=== PATIENT | male | born 1975 | race Caucasian/White ===

== ENCOUNTER → 2019-10-26 09:54 | Outpatient (CLI) | payer OTHER, SELFPAY ==
--- NOTE | ~2019-10-26 | MR_ITS ---
EXAMINATION: MR knee RT wo con DATE: 10/26/2019 10:50 INDICATION: Right knee popping and clicking and pain. TECHNIQUE: Magnetic resonance imaging (MRI) of the right knee was performed without intravenous contr ast. Sequences included axial PD-weighted FS FSE, coronal PD-weighted FSE and PD-weighted FS FSE, sag ittal PD-weighted FSE, coronal STIR FSE, and sagittal T2-weighted FS FSE. COMPARISON: None. FINDINGS: Medial compartment: There is a complex tear of medial meniscus involving the body and posterior horn. There is shallow pa rtial-thickness [employer] loss of tibial condyle. There is deep partial thickness cartilage loss of fem oral condyle involving the central and posterior articular surface. Bulky osteophytes are noted. Lateral compartment: There is a complex tear of anterior horn of lateral meniscus. There is full-thickness cartilage loss of tibial condyle medially with mild subchondral edema-like marrow signal intensity and small subchon dral cyst. There is deep partial thickness cartilage loss of tibial condyle laterally. There is full- thickness cartilage loss of femoral condyle involving the central and posterior articular surface. Th ere is depression of cortex of lateral femoral condyle at the notch with mild subchondral edema. Bulk y osteophytes are noted. Patellofemoral compartment: There is deep partial thickness cartilage loss of patellar lateral facet and median ridge with mild s ubchondral edema-like marrow signal intensity. There is cartilage surface irregularity of patellar me dial facet. There is deep partial thickness cartilage loss of lateral and central trochlea and shallo w partial-thickness cartilage loss of medial trochlea with mild subchondral edema-like marrow signal intensity. Posterior osteophytes are noted. Ligaments and tendons: There is an intact anterior cruciate ligament reconstruction with interference screws in the distal f emur and proximal tibia. There is thickening of posterior cruciate ligament, consistent with sprain. Medial collateral ligament is normal. There are changes of prior sprain of fibular collateral ligamen t characterized by thickening and increased signal intensity proximally. There is a graft donor site involving the middle third of the patellar tendon. Fluid: There is a small knee joint effusion. There is a small Calvillo's cyst. IMPRESSION: 1. Severe chondrosis of lateral compartment and moderate chondrosis of medial and patellofemoral comp artments. 2. Cortical depression at the notch of lateral femoral condyle, likely a fracture deformity from the time of the original anterior cruciate ligament tear. 3. Intact anterior cruciate ligament reconstruction. 4. Tears of medial and lateral menisci. Reviewed, dictated and finalized at location A. IMPRESSION: 1. Severe chondrosis of lateral compartment and moderate chondrosis of medial a nd patellofemoral compartments. 2. Cortical depression at the notch of lateral femoral condyle, likely a fractu re deformity from the time of the original anterior cruciate ligament tear. 3. Intact anterior cruciate ligament reconstruction. 4. Tears of medial and lateral menisci.
== END ==
PROVIDERS: Visit Provider Orthopaedic Surgery
DX: G89.29 Other chronic pain (principal); S83.241A Other tear of medial meniscus, current injury, right knee, initial encounter; S83.281A Other tear of lateral meniscus, current injury, right knee, initial encounter; X58.XXXA Exposure to other specified factors, initial encounter
CPT/HCPCS: 73721

== ENCOUNTER → 2020-10-03 17:01 | Outpatient (CLI) | payer OTHER, SELFPAY ==
--- NOTE | ~2020-10-03 | MR_ITS ---
EXAMINATION: MR knee LT wo con DATE: 10/03/2020 19:55 INDICATION: Left knee pain TECHNIQUE: Magnetic resonance imaging (MRI) of the left knee was performed without intravenous contra st. Sequences included coronal PD-weighted FSE, coronal PD-weighted FS FSE, sagittal T2-weighted FSE , sagittal PD-weighted FS FSE and axial PD weighted fat saturated FSE. COMPARISON: None. FINDINGS: Medial compartment: Medial meniscus is normal. Diffuse chondral ulceration with partial thickness cartilage loss and marita dral surface irregularity at the anterior to central weightbearing medial femoral condyle without deg enerative subchondral changes. Cartilage at the medial tibial plateau appears normal. Lateral compartment: Lateral meniscus is normal. Chondral ulceration and deep fissuring at the anterior to central weightb earing medial femoral condyle. Mild cortical irregularity with negligible subarticular edema at the a nteriormost weightbearing lateral femoral condyle. Additional chondral fissuring along the posterior margin of the lateral tibial plateau. Patellofemoral compartment: Deep chondral ulceration with mild subarticular edema at the cephalad half of the patellar apical rid ge and lateral facet. Deep chondral fissuring with underlying cortical irregularity and minimal subar ticular edema centered along the trochlear groove and immediately adjacent medial and lateral trochle a. Ligaments and tendons: Postoperative change of prior anterior cruciate ligament reconstruction with patellar tendon autograf t. The graft appears intact with normal low signal intensity in following a normal course relative to Blumensaat line. Diffuse thickening of the patellar tendon along either side of a central cleft like ly representing the harvest site for the cruciate ligament graft. The posterior cruciate ligament is normal. The medial collateral ligament and fibular collateral ligament complex are normal. Mild dista l quadriceps tendinopathy. The visualized medial and lateral hamstring tendons as well as the iliotib ial band are normal. Fluid: Physiologic amount of fluid in the joint space. No loose osteochondral bodies identified. Large Calvillo 's cyst measuring 8.0 cm in length and up to 3.8 x 1.4 cm in orthogonal dimensions. Osseous/other: Normal marrow signal. No fracture or pathologic marrow replacing process. Diffuse mild synovitis at H offa's fat pad. IMPRESSION: 1. Intact patellar tendon autograft anterior cruciate ligament reconstruction. 2. 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 3. Large Calvillo's cyst. Reviewed, dictated and finalized at location A. IMPRESSION: 1. Intact patellar tendon autograft anterior cruciate ligament reconstruction. 2. 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 3. Large Calvillo's cyst.
== END ==
PROVIDERS: Visit Provider Orthopaedic Surgery
DX: M25.562 Pain in left knee (principal); M17.12 Unilateral primary osteoarthritis, left knee; M94.262 Chondromalacia, left knee; M71.22 Synovial cyst of popliteal space [Baker], left knee
CPT/HCPCS: 73721

== ENCOUNTER → 2023-03-02 12:52 | Outpatient (CLI) | payer OTHER, SELFPAY ==
--- NOTE | ~2023-03-02 | MR_ITS ---
EXAMINATION: MR shoulder RT w con DATE: 03/02/2023 14:40 INDICATION: Right shoulder pain. TECHNIQUE: Magnetic resonance imaging (MRI) of the right shoulder was performed without intravenous c ontrast after intra-articular injection of contrast (MR arthrogram). COMPARISON: None. FINDINGS: Coracoacromial arch: The acromion undersurface is curved in morphology (type II). There is an old healed fracture of dista l clavicle. There is mild acromioclavicular joint osteoarthritis. Rotator cuff: There is severe supraspinatus and infraspinatus tendinopathy. There is a full-thickness tear of supra spinatus tendon measuring 8 mm anterior to posterior by 9 mm proximal to distal. There is an articula r sided partial-thickness tear of infraspinatus tendon with contrast tracking greater than 5 cm proxi xiao with contrast at the myotendinous junction. Teres minor tendon is normal. There is moderate sub scapularis tendinopathy. There is no asymmetric fatty atrophy of the rotator cuff muscle bellies. Biceps tendon and glenoid labrum: Biceps tendon is in bicipital groove. Intra-articular biceps tendon is normal. There is a tear of the labrum from 10:00 to 12:00 (SLAP tear). Fluid: The glenohumeral joint is well distended by contrast. There is iatrogenic placement of contrast in carter bscapularis muscle. Bones/cartilage: Humeral head cartilage is normal. Glenoid cartilage is normal. IMPRESSION: 1. Full-thickness rotator cuff tear. 2. SLAP tear. 3. Mild acromioclavicular joint osteoarthritis. Reviewed, dictated and finalized at location A. [employer]OR [employer]UCLE[employer]ICINE
--- NOTE | ~2023-03-02 | XR_ITS ---
EXAMINATION: XR fl inj shoulder RT - MR/CT DATE: 03/02/2023 13:51 INDICATION: Right shoulder pain. No prior surgery or dislocation. TECHNIQUE: A time-out was performed to verify the patient's name, date of , and procedure to b e performed. The procedure including the risks, benefits, and alternatives was discussed with the pat ient. Risks discussed included bleeding and infection. The patient understood the risks and agreed to proceed. The skin overlying the right glenohumeral joint was prepped and draped in usual sterile fas hion. Anesthetic was administered with 1% lidocaine subcutaneously. A 22 G needle was advanced unde r fluoroscopic guidance into the joint. Subsequently, injectate consisting of 12 mL of 1:200 Multiha nce, 1:4 1% lidocaine, and 1:4 Omnipaque 240 was instilled. The needle was removed and the entry sit e was cleaned and dressed. There were no immediate complications. Fluoroscopy exposure time was 0.0 minutes. The total number of images was 2. FINDINGS: Real-time fluoroscopy demonstrates the needle and contrast in the joint. IMPRESSION: 1. Successful right glenohumeral joint injection of contrast for subsequent MR arthrography. Reviewed, dictated and finalized at location A. LEADER/CONTROL ROOM OPERATOR
== END ==
PROVIDERS: PCP Orthopaedic Surgery; Visit Provider Orthopaedic Surgery
DX: M75.101 Unspecified rotator cuff tear or rupture of right shoulder, not specified as traumatic (principal); M19.011 Primary osteoarthritis, right shoulder
CPT/HCPCS: 23350; 73222; 77002; A9577; Q9967

== ENCOUNTER 2023-06-24 10:46 | Outpatient (CLI) | payer OTHER, SELFPAY ==
--- NOTE | ~2023-06-24 | MR_ITS ---
MRI of the left shoulder Technique: Axial proton-density fat-sat images, coronal proton density fat-sat and T2 fat-sat images, and sagittal T1-weighted and T2 fat-sat images were acquired. Clinical History: Pain Findings: There is moderate AC joint degenerative change, with subacromial spur and mild reactive juma ma about the joint space. Coracoclavicular, coracoacromial, and coracohumeral ligaments appear intact . Supraspinatus and infraspinatus tendons are intact, with mild tendinosis. There is focal edematous ch yumiko and fluid at the myotendinous junction region of the supraspinatus tendon, which could reflect f ocal interstitial tear/muscle injury. Subscapularis tendon is intact, mild tendinosis. Tendon of long head of the biceps is intact. No definite labral tear seen. Inferior glenohumeral ligament is intact. There is mild to moderate degenerative change of the glenoh umeral joint, with probable minimal inferomedial humeral head spur and chondromalacia at the inferior aspect of the joint. No significant joint effusion. No fluid distention of the subacromial/subdeltoi d bursa. No other muscle atrophy or edema evident. Impression: Suspected focal tear/injury at the myotendinous junction region of the supraspinatus, with focal flui d and edema in this region. Rotator cuff tendons are intact otherwise. Degenerative change of the AC joint and glenohumeral joint, as detailed above. Reviewed, dictated and finalized at [facility]. Impression: Suspected focal tear/injury at the myotendinous junction region of the supraspi natus, with focal fluid and edema in this region. Rotator cuff tendons are inta ct otherwise. Degenerative change of the AC joint and glenohumeral joint, as detailed above.
== END 2023-06-24 10:47 ==
PROVIDERS: PCP Orthopaedic Surgery; Visit Provider Orthopaedic Surgery
DX: M19.012 Primary osteoarthritis, left shoulder (principal)
CPT/HCPCS: 73221

== ENCOUNTER 2023-10-04 10:55 | Outpatient (CLI) | payer OTHER, SELFPAY ==
--- NOTE | ~2023-10-04 | MR_ITS ---
EXAMINATION: MR lumbar spine wo con DATE: 10/04/2023 13:21 INDICATION: Chronic bilateral low back pain with left-sided sacroiliac joint pain and pain, numbness and tingling at the left lower limb. TECHNIQUE: Magnetic resonance imaging (MRI) of the lumbar spine was performed without intravenous con trast. Sequences included sagittal T2-weighted FSE, sagittal T2-weighted FS FSE, sagittal T1-weighted FSE, and axial T2-weighted FSE. COMPARISON: None FINDINGS: 12 degree thoracolumbar levoscoliosis. 3-4 mm retrolisthesis L1 on L2, L2 on L3, L3 on L4 and L4 on L 5. There is chronic mild right anterior predominant vertebral body height loss at T12 and L1 vertebra l body. Severe right-sided predominant disc height loss with 1 degenerative endplate remodeling and fibrovasc ular degenerative endplate changes at the L3-L4. Moderate to severe left-sided vertebral body height loss at L4-5 similar fibrovascular degenerative e ndplate changes. Moderate disc height loss at T11-T12 through L2-L3 and mild disc height loss at L5-S 1. The conus medullaris terminates at L1-L2. There is normal signal in the caudal spinal cord. Parave rtebral soft tissues are unremarkable. The following disc levels are specifically discussed: T12-L1: Disc is bulging. There is moderate bilateral facet joint osteoarthritis. There is mild right neural foraminal stenosis. There is mild central canal stenosis. L1-L2: Disc is bulging with prominent heterotopic ossicle along the posterior disc margin. There is m oderate right and severe left facet joint osteoarthritis. There is mild to moderate bilateral neural foraminal stenosis. There is moderate central canal stenosis. L2-L3: Disc is bulging with annular fissure and small central disc extrusion with disc material exten ding 3 mm caudal to the level of the superior endplate of L3. There is left and severe right facet kateryna int osteoarthritis. There is moderate right and mild left neural foraminal stenosis. There is mild ce ntral canal stenosis. L3-L4: Disc is bulging with annular fissure and disc extrusion with moderate sized disc extrusion ext ending laterally and 12 mm inferior to the level of the superior L4 endplate into the left lateral co mpartment exerts mass effect upon the traversing left L4 nerve root. There is severe bilateral facet joint osteoarthritis. There is moderate bilateral neural foraminal stenosis. There is moderate centra l canal stenosis. L4-L5: Disc is bulging with annular fissure and moderate sized right paracentral disc extrusion which extends up to 12 mm caudal to the level of the superior endplate of L5. There is a right and severe left facet joint osteoarthritis. There is moderate to severe right and severe left neural foraminal s tenosis. There is moderate central canal stenosis. L5-S1: Disc is bulging with annular fissure. There is mild bilateral facet joint osteoarthritis. Ther e is moderate bilateral neural foraminal stenosis. There is minimal central canal stenosis. IMPRESSION: 1. 12 thoracolumbar levoscoliosis with severe spondylosis. Reviewed, dictated and finalized at location A.
== END 2023-10-04 10:56 | disposition home or self-care (01) ==
PROVIDERS: PCP Family Medicine
DX: M51.36 Other intervertebral disc degeneration, lumbar region (principal); M48.062 Spinal stenosis, lumbar region with neurogenic claudication; M54.41 Lumbago with sciatica, right side; M54.42 Lumbago with sciatica, left side; G89.29 Other chronic pain; M47.896 Other spondylosis, lumbar region
CPT/HCPCS: 72148